=== PATIENT | female | born 1975 | race Two or more races ===

== ENCOUNTER 2024-10-21 19:18 | Emergency (ER) | payer SELFPAY ==
[~2024-10-21] VITALS: Ht 170.2 cm; Wt 81.8 kg
[2024-10-21] MEDS: NITROGLYCERIN 0.4 MG SL TAB SL ONE (19:30)
[2024-10-21 19:32] VITALS: TEMP 97.9; O2SAT 100
[2024-10-21 19:55] VITALS: PULSE 92; RESP 18
--- NOTE | 2024-10-21 19:58 | ED.PDOC ---
HPI (NEURO) HPI Comments HPI: 49y F who presents to the ED via EMS for chief complaint of headache - pt states she has been having headache for the past 4 days - pt states she to local urgent care today and states her BP was found to be 243/123 and pt was given 1 mg Ativan and EMS was called to take pt to ED, - pt now in the ED states the headache is located in the frontal and posterior regions, constant, with no noted exacerbating or relieving factors - pt states she had episode of blood in vomit 3x days prior but otherwise denies any dizziness or associated symptoms - pt has noted BP of 183/127 but otherwise stable vitals in the ED - pt denies any past history of HTN and denies taking any medications on daily basis or to help relieve symptoms - pt is alert and oriented x 4 and no noted changes in gait, vision or speech are noted Past Medical History: cancer(remission) Past Surgical History: hysterectomy, tubal ligation Social History: Denies ETOH, smoking, and drug use. Medications: denies Allergies: nkda JIMEENZ: HTN, DENISE HPI: Poor Historian. Past Medical History: Past Surgical History: REVIEW OF SYSTEMS: CONSTITUTIONAL: Denies acute: fever, diaphoresis, chills, generalized weakness. HEAD: Denies acute: , photophobia Eyes: Denies acute: Double vision, vision loss, eye pain, eye discharge. EARS: Denies acute: tinnitus, hearing loss, ear discharge, ear pain, THROAT: Denies acute: sore throat, swelling, difficulty swallowing , pain with swallowing, change in voice. NECK: Denies acute: neck pain, neck swelling, stiff neck. HEART: Denies acute : chest pain, palpitations, LUNGS: Denies acute: SOB, wheezing, cough, hemoptysis ABDOMEN: Denies acute: abdominal pain, Nausea, Vomiting, diarrhea, melena , hematemesis, hematochezia SKIN: Denies acute: rash, redness, lesions, itchiness. EXTREMITIES: Denies acute: calf pain, numbness, tingling, weakness, denies pain in extremity. Denies acute: Low back pain. Neuro: Denies acute: focal neurological deficit, motor or sensory focal neurological deficit, tremors, seizure like activity, confusion, dizziness, change in mental status, loss of bowel or bladder function, cauda equina like symptoms. : Denies acute: dysuria, hematuria, flank pain, increase in urinary frequency. PSYCH: Denies acute: hallucination, suicidal ideation, homicidal ideation. FEMALE: Denies acute: abnormal vaginal bleeding, foul odor, unusual discharge. PHYSICAL EXAM: General: -----[id number]---acute distress, awake and alert. Head: normocephalic, atraumatic. Neck: supple, trachea is midline, no swelling. Throat: Normal phonation. Eyes:, no erythema, no purulent discharge, no proptosis, no icterus. Heart: regular rate, regular rhythm, no significant murmur appreciated. Lungs: no apparent respiratory distress, Able to speak in full sentences. No wheezing, no rhonchi, no crackles. No stridors Clear to auscultation bilaterally. Abdomen: non tender to palpation, non distended, soft, no guarding, no rebound, + bowel sounds. Neuro: Awake, Alert, oriented to name, self, situation, follows commands GCS=15. Speech is normal. Skin: no petechia, no purpura, no cyanosis, non-pale, not jaundice. Lower extremities: --no - Pitting edema no deformity, no focal swelling, no calf TTP. Makes eye contact. moves all four extremities. Face: no apparent facial droop. Ambulating in the ED independently. PERRLA, EOM-I CN 2-12 are grossly intact, No nystagmus. No nuchal rigidity, Kernig's sign, Brudzinski's sign, no meningeal signs. ED COURSE: DISCLAIMER: This medical document was created using an electronic medical record system with voice recognition software and computerized dictation system. Although this document has been carefully reviewed, there might still be some phonetic and typographical errors. Occasional wrong-word or "sound-alike" substitutions may have occurred due to the inherent limitations of voice recognition software. These areas are purely typographical due to imperfections of the software programs and do not reflect any compromise in the patient's medical care. Please read the chart carefully and recognize, using context, where these substitutions have occurred. Chief Complaint: headache Time Seen by MD: 20:04 Reviewed Notes: Medications, Allergies Information Source: Patient Mode of Arrival: EMS Was a procedure done? Was a procedure done?: No Differential Diagnosis (SZ) Seizure: Other (As far as chest pain. Ddx include but not limitied to gastritis, musculoskeletal pain, radiculopathy, atypical chest pain, dissection, aneurysm, ACS, unstable angina, hiatal hernia, GERD, anxiety, costochondritis, PE, pneumothroax, neoplasm, cardiac ischemia, drug abuse, anemia.), N/A Headache: Other (DDX include Sinusitis, migraine, meningitis, hypertension, intracranial mass/bleed, stroke, radiculopathy, vertebrobasillary insufficiency, cephalgia, pseudotumor cerebri, cerebellar ischemia/infarct, carotid stenosis, lacunar infarct, vertebral/carotid artery dissection, hydrocephalus, temporal ar teritis, dura venous sinus thrombosis.) X-Ray, Labs, Meds, VS Vital Signs Date Time Temp Pulse Resp B/P (MAP) Pulse Ox O2 Delivery O2 Flow Rate FiO2 10/21/24 21:20 168/117 (134) 10/21/24 21:10 168/117 (134) 10/21/24 20:49 170/99 (122) 10/21/24 20:33 189/108 (135) 10/21/24 20:13 187/126 (146) 10/21/24 19:55 92 18 Room Air* 0 21 10/21/24 19:38 94 10/21/24 19:32 97.9 100 18 183/127 100 97.9 10/21/24 19:30 185/99 Lab Test 10/21/24 20:44 10/21/24 20:22 10/21/24 19:42 Range/Units Troponin I High Sensitivity 16 18 </=34 ng/L Plasma/Serum Blood Alcohol < 3.0 <10 mg/dL Urine Color Light-yellow Yellow Urine Clarity Clear Clear Urine pH 5.5 5.0-9.0 Urine Specific [place] 1.010 1.001-1.035 Urine Protein Negative Negative Urine Ketones Negative Negative Urine Blood Negative Negative /uL Urine Nitrite Negative Negative Urine Bilirubin Negative Negative Urine Urobilinogen Normal Negative mg/dL Urine Leukocyte Esterase Negative Negative /uL Urine RBC 3 0 - 4 /hpf Urine Microscopic WBC 1 0-5 /HPF Urine Squamous Epithelial Cells Few <5 /hpf Urine Bacteria None seen None Seen /hpf Urine Mucus Few None Seen Urine Glucose Normal Normal mg/dL Urine Opiates Screen Neg NEGATIVE Urine Fentanyl Screen Neg NEGATIVE Urine Barbiturates Screen Neg NEGATIVE Urine Phencyclidine Screen Neg NEGATIVE Urine Amphetamines Screen Neg NEGATIVE Urine Benzodiazepines Screen Neg NEGATIVE Urine Cocaine Screen Neg NEGATIVE Urine Cannabinoids Screen Neg NEGATIVE White Blood Count 8.2 4.4-10.8 10^3/uL Red Blood Count 4.99 4.0-5.20 10^6/uL Hemoglobin 15.6 12.2-16.2 g/dL Hematocrit 45.1 36.0-46.0 % Mean Corpuscular Volume 90.5 80.0-100.0 fL Mean Corpuscular Hemoglobin 31.3 28.0-32.0 pg Mean Corpuscular Hemoglobin Concent 34.6 32.0-36.0 g/dL Red Cell Distribution Width 13.9 11.8-14.3 % Platelet Count 321 140-450 10^3/uL Mean Platelet Volume 7.1 6.9-10.8 fL Neutrophils (%) (Auto) 64.2 37.0-80.0 % Lymphocytes (%) (Auto) 23.5 10.0-50.0 % Monocytes (%) (Auto) 8.3 0.0-12.0 % Eosinophils (%) (Auto) 2.7 0.0-7.0 % Basophils (%) (Auto) 1.3 0.0-2.0 % Neutrophils # (Auto) 5.2 1.6-8.6 10 ^3/uL Lymphocytes # (Auto) 1.9 0.4-5.4 10 ^3/uL Monocytes # (Auto) 0.7 0-1.3 10 ^3/uL Eosinophils # (Auto) 0.2 0-0.8 10 ^3/uL Basophils # (Auto) 0.1 0-0.2 10 ^3/uL Nucleated Red Blood Cells 0.2 % Sodium Level 139 136-145 mmol/L Potassium Level 3.7 3.5-5.1 mmol/L Chloride Level 104 98-107 mmol/L Carbon Dioxide Level 26 20-31 mmol/L Anion Gap 9 5-15 Blood Urea Nitrogen 8 L 9-23 mg/dL Creatinine 0.76 0.550-1.02 mg/dL Glomerular Filtration Rate Calc 95 >90 mL/min BUN/Creatinine Ratio 10.5 10.0-20.0 Serum Glucose 127 H 74-106 mg/dL Calcium Level 9.6 8.7-10.4 mg/dL Total Bilirubin 0.6 0.2-1.0 mg/dL Aspartate Amino Transferase (AST) 25 13-40 U/L Alanine Aminotransferase (ALT) 40 7-40 U/L Alkaline Phosphatase 93 46-116 U/L Total Protein 7.6 5.7-8.2 g/dL Albumin 4.6 3.2-4.8 g/dL [place] [address] Ph: [phone] DIAGNOSTIC IMAGING Diagnostic Imaging Report : [id number] Signed PATIENT: KATHI JIMENEZ ACCT: [id number] UNIT: [id number] : 1975 LOC: ER ROOM / BED: / AGE / SEX: 49 / F ADM STATUS: REG ER SERVICE 19 ORDERING PHYSICIAN: MILY ESCOBAR DO PROCEDURE(s): CXRP - CHEST PORTABLE REASON: htn, denise ORDER NUMBER(s): [id number], ACCESSION NUMBER(s): [id number] EXAM: XY CHEST PORTABLE HISTORY: htn, denise TECHNIQUE: 1 view of the chest COMPARISON: None FINDINGS/IMPRESSION: LUNGS: No pleural effusion, consolidation, or pneumothorax MEDIASTINUM: Unremarkable BONES: No acute osseous abnormality OTHER: None ATED BY: JOSE SR MD DICTATED DATE/TIME: 10/21/242046 SIGNED BY: JOSE SR MD SIGNED DATE/TIME: 10/21/242046 CC: [address] [address] Ph: [phone] DIAGNOSTIC IMAGING Diagnostic Imaging Report : [id number] Signed PATIENT: KATHI JIMENEZ ACCT: [id number] UNIT: [id number] : 1975 LOC: ER ROOM / BED: / AGE / SEX: 49 / F ADM STATUS: REG ER SERVICE 15 ORDERING PHYSICIAN: MILY ESCOBAR DO PROCEDURE(s): HWOCT - HEAD WITHOUT CONTRAST REASON: htn, denise ORDER NUMBER(s): [id number], ACCESSION NUMBER(s): [id number] EXAM: CT HEAD WITHOUT CONTRAST INDICATION: htn, denise TECHNIQUE: CT images of the head were obtained without administration of IV contrast. CT scans at this facility use dose modulation, iterative reconstruction, and/or weight based dosing when appropriate to reduce radiation dose to as low as reasonably achievable. COMPARISON: None FINDINGS: PARENCHYMA: No acute hemorrhage. There is no mass effect, midline shift, or herniation. There is preservation of the ballard white differentiation. Mild scattered hypoattenuation along the periventricular, centrum semiovale, and deep white matter tracts, which are nonspecific however statistically most likely represent chronic microvascular ischemic change. VENTRICLES: No hydrocephalus. EXTRA-AXIAL SPACES: No extra-axial fluid collections. OTHER: The bony structures are intact. Visualized portions of the paranasal sinuses and mastoid air cells are clear. IMPRESSION: 1. No CT evidence of an acute intracranial abnormality. ATED BY: JOSE SR MD DICTATED DATE/TIME: 10/21/242038 SIGNED BY: JOSE SR MD SIGNED DATE/TIME: 10/21/242038 CC: Time of 1ST Reevaluation: 00:00 Reevaluation 1ST: Patient Education/Counseling: Diagnosis, Treatment Family Education/Counseling: No Family Present Comments MDM: patient presented with the above HPI.---hypertensive crisis---workup was initiated. patient was found with the above mentioned diagnosis. the following medications were ordered: please refer to order lists of meds and tests obtained by myself Dr. Escobar. Patient ED course and VS have been stabilized. Patient has been reassessed in the ED and remained in a stable condition. Patient has been observed in the ED adequate length of time to insure improvement/stability. Orthostatics were obtained. Patient was given labetalol 5 mg twice in sublingual nitroglycerin for blood pressure control. CT scan of the head was obtained. Cardiac workup was initiated. Escalation of care considered: Consideration of escalation to observation or admission I was notified that the patient left against medical advice. All the reports of any imaging studies that were ordered by myself were reviewed by myself. Departure 1 Departure Time of Disposition: 21:36 Impression: Primary Impression: Hypertensive crisis Additional Impressions: Headache Left against medical advice Disposition: 07 LEFT AGAINST MEDICAL ADVICE Condition: Other Additional Instructions: I was told by the nurse that the patient left against medical advice. Discharged With: Self Critical Care Note Critical Care Time?: Yes (45 min-critical care time only) I personally scribed for MILY ESCOBAR DO ([email or web address]) on 10/21/24 at 19:58. Electronically submitted by Palak Martin ([employer]). I personally scribed for MILY ESCOBAR DO ([email or web address]) on 10/21/24 at 20:04. Electronically submitted by Palak Martin ([employer]). I personally scribed for MILY ESCOBAR DO ([email or web address]) on 10/21/24 at 20:11. Electronically submitted by Palak Martin ([employer]). I personally scribed for MILY ESCOBAR DO ([email or web address]) on 10/21/24 at 21:51. Electronically submitted by Palak Martin ([employer]). MILY ESCOBAR DO Oct 21, 2024 19:58
[2024-10-21 19:59] LABS: Hematocrit 45.1 % (36.0-46.0); Hemoglobin 15.6 g/dL (12.2-16.2); Mean Corpuscular Hemoglobin 31.3 pg (28.0-32.0); Mean Corpuscular Volume 90.5 fL (80.0-100.0); Nucleated Red Blood Cells % 0.2 %
[2024-10-21] MEDS ORDERED: LABETALOL HCL 20 MG/4 ML VL IV ONE ×2 (20:00→21:30)
[2024-10-21 20:10] LABS: Albumin 4.6 g/dL (3.2-4.8); Alkaline Phosphatase 93 U/L (46-116); Anion Gap 9 (5-15); BUN/Creatinine Ratio 10.5 (10.0-20.0); Bilirubin, Total 0.6 mg/dL (0.2-1.0); Calcium 9.6 mg/dL (8.7-10.4); Carbon Dioxide 26 mmol/L (20-31); Chloride 104 mmol/L (98-107); Potassium 3.7 mmol/L (3.5-5.1); Sodium 139 mmol/L (136-145); Total Protein 7.6 g/dL (5.7-8.2)
[2024-10-21 20:15] LABS: Alanine Aminotransferase 40 U/L (7-40); Blood Urea Nitrogen 8 mg/dL (9-23); Glucose 127 mg/dL (74-106)
--- NOTE | 2024-10-21 20:41 | DVH ---
EXAM: CT HEAD WITHOUT CONTRAST INDICATION: htn, ball TECHNIQUE: CT images of the head were obtained without administration of IV contrast. CT scans at [facility] use dose modulation, iterative reconstruction, and/or weight based dosing when appropriate to reduce radiation dose to as low as reasonably achievable. COMPARISON: None FINDINGS: PARENCHYMA: No acute hemorrhage. There is no mass effect, midline shift, or herniation. There is pres ervation of the ballard white differentiation. Mild scattered hypoattenuation along the periventricular, centrum semiovale, and deep white matter tracts, which are nonspecific however statistically most li sonny represent chronic microvascular ischemic change. VENTRICLES: No hydrocephalus. EXTRA-AXIAL SPACES: No extra-axial fluid collections. OTHER: The bony structures are intact. Visualized portions of the paranasal sinuses and mastoid air cells are clear. IMPRESSION: 1. No CT evidence of an acute intracranial abnormality.
--- NOTE | 2024-10-21 20:49 | DVH ---
EXAM: XY CHEST PORTABLE HISTORY: htn, ball TECHNIQUE: 1 view of the chest COMPARISON: None FINDINGS/IMPRESSION: LUNGS: No pleural effusion, consolidation, or pneumothorax MEDIASTINUM: Unremarkable BONES: No acute osseous abnormality OTHER: None
[2024-10-21 21:20] VITALS: BP 168/117
[2024-10-22 10:05] LABS: Urine Protein, UAD Negative (Negative)
[2024-10-22 10:16] LABS: Amphetamine Screen, Urine Neg (NEGATIVE); Barbiturate Scree,Urine Neg (NEGATIVE); Benzodiazephine Screen, Urine Neg (NEGATIVE); Cannabinoid Screen, Urine Neg (NEGATIVE); Cocaine Screen, Urine Neg (NEGATIVE); Opiate Scree,Urine Neg (NEGATIVE); Phencyclidine Screen, Urine Neg (NEGATIVE)
--- NOTE | 2024-10-29 14:20 | ECG ---
[facility] Test Date: 2024-10-21 Test Time: 19:38:19 Pat Name: KATHI JIMENEZ Department: ED Room: Gender: F Tool Analyst: kimani : 1975 Requested By: MILY ESCOBAR Order Number: [id number] Reading MD: Sunny Wilson Measurements Intervals [place] Rate: 94 P: 65 NM: 182 QRS: -5 QRSD: 89 T: 47 QT: 387 QTc: 485 Interpretive Statements Sinus rhythm Abnormal R-wave progression, late transition Probable left ventricular hypertrophy Inferior infarct, old Electronically Signed On 11-01-2024 10:14:20 PDT by Sunny Wilson Please click the below link to view image of tracing.
== END 2024-10-21 21:35 | disposition left against medical advice (07) ==
LOC: ER 19:18 → EDBD 19:18 → ER 21:35
DX: I16.9 Hypertensive crisis, unspecified (principal); R51.9 Headache, unspecified; I10 Essential (primary) hypertension; Z90.710 Acquired absence of both cervix and uterus; Z79.899 Other long term (current) drug therapy
CPT/HCPCS: 36415; 70450; 71045; 80053; 80307; 80320; 81001; 84484; 85025; 93005